=== PATIENT | male | born 1970 | race Caucasian/White ===

== ENCOUNTER → 2016-12-02 | Outpatient (CLI) | payer BC ==
[~2016-12-02] MED LIST: CIALIS5 MG PO; FLEXERIL10 MG PO; PANTOTHENIC AC500 MG PO; SYNTHROID25 MCG PO; SYNTHROID75 MCG PO; THERA M PLUS T1 EACH PO; VALTREX500 MG PO
== END | disposition short-term general hospital (02) ==
LOC: CLPAIN 08:05
DX: M51.17 Intervertebral disc disorders with radiculopathy, lumbosacral region (principal)

== ENCOUNTER 2016-12-16 12:14 | Day surgery (SDC) | payer BC | END 2016-12-16 13:23 | disposition short-term general hospital (02) | LOC: SURGOP 12:14 → INF/INJ 14:23 → SURGOP 14:26 → INF/INJ 14:26 | PROC: 3E0R33Z Introduction of Anti-inflammatory into Spinal Canal, Percutaneous Approach (ICD-10-PCS; principal; 2016-12-16) | PROC: 3E0R3BZ Introduction of Anesthetic Agent into Spinal Canal, Percutaneous Approach (ICD-10-PCS; 2016-12-16) | DX: M51.17 Intervertebral disc disorders with radiculopathy, lumbosacral region (principal); M51.16 Intervertebral disc disorders with radiculopathy, lumbar region; I10 Essential (primary) hypertension; G43.909 Migraine, unspecified, not intractable, without status migrainosus; M19.90 Unspecified osteoarthritis, unspecified site; N40.0 Benign prostatic hyperplasia without lower urinary tract symptoms; E03.9 Hypothyroidism, unspecified; Z88.6 Allergy status to analgesic agent; Z79.899 Other long term (current) drug therapy; Z86.19 Personal history of other infectious and parasitic diseases; Z98.52 Vasectomy status; Z90.49 Acquired absence of other specified parts of digestive tract; Z87.891 Personal history of nicotine dependence; Z82.49 Family history of ischemic heart disease and other diseases of the circulatory system | CPT/HCPCS: J1040; Q9967 ==

== ENCOUNTER → 2016-12-30 | Outpatient (CLI) | payer BC | END | disposition short-term general hospital (02) | LOC: CLPAIN 08:29 | DX: M54.9 Dorsalgia, unspecified (principal); M51.87 Other intervertebral disc disorders, lumbosacral region; M54.16 Radiculopathy, lumbar region ==